=== PATIENT | female | born 1965 | race African-American/Black ===

== ENCOUNTER 2024-06-06 02:22 | Emergency (ER) | payer OTHER ==
[~2024-06-06] VITALS: Ht 165.1 cm; Wt 125.4 kg
[2024-06-06 02:28] VITALS: O2SAT 96
[2024-06-06 03:26] LABS: HEMATOCRIT. 27.3 % (36.0-48.0); HEMOGLOBIN. 9.1 g/dL (12.0-16.0); MEAN CORPUSCULAR HGB CONC 33.5 g/dL (31.0-37.0); MEAN CORPUSCULAR VOLUME 80.5 fL (81.0-99.0); MEAN PLATELET VOLUME 7.8 fl (7.4-10.4); PLATELET 234 x1000/uL (130-400); RED BLOOD CELL COUNT 3.39 mill/uL (4.2-5.4); RED CELL DISTRIBUTION WIDTH 16.2 % (11.6-14.6); WHITE BLOOD COUNT 12.5 x1000/uL (4.5-11.0)
[2024-06-06] MEDS: DEXAMETHASONE 10 MG/ML VIAL IV ONE (03:26)
[2024-06-06] MEDS: LEVETIRACETAM 1000MG PREMIX 100 ML IV ONE (03:26)
[2024-06-06] MEDS: ONDANSETRON HCL 4MG/2ML INJ IV STA (03:26)
[2024-06-06 03:30] LABS: DIFFERENTIAL COMMENT 1
[2024-06-06 03:37] LABS: CHLORIDE 86 mEq/L (98-107); POTASSIUM 4.1 mEq/L (3.5-5.1); SODIUM 125 mEq/L (136-145)
[2024-06-06 03:38] LABS: CALCIUM 9.8 mg/dL (8.7-10.4); CARBON DIOXIDE 25 mEq/L (21-32)
[2024-06-06 03:42] LABS: INR 1.3; PROTHROMBIN TIME 13.9 sec (9.6-11.0)
[2024-06-06 03:43] LABS: CREATININE 1.3 mg/dL (0.6-1.0); GLUCOSE 121 mg/dL (70-105); UREA NITROGEN BLOOD 31 mg/dL (9-23)
[2024-06-06 03:44] LABS: TROPONIN I HIGH SENSITIVITY 19 ng/L (3.0-34)
[2024-06-06 03:45] LABS: AMMONIA 26 uMol/L (<32); CREATINE KINASE 189 IU/L (34-145)
[2024-06-06 03:55] LABS: ETHANOL BLOOD < 10 mg/dL (<10)
[2024-06-06] MEDS: IOHEXOL-350 100 ML BOTTLE ONE (04:01)
[2024-06-06 04:24] LABS: LACTIC ACID 7.6 mmol/L (0.4-2.0)
[2024-06-06 05:52] LABS: TROPONIN I HIGH SENSITIVITY 19 ng/L (3.0-34)
[2024-06-06] MEDS ORDERED: HYDROCODONE/ACETAMINOPHEN 5/325MG TABLET PO PRN (06:15)
[2024-06-06] MEDS ORDERED: NALOXONE HCL 0.4MG/ML VIAL IV PRN (06:15)
[2024-06-06 08:06] VITALS: BP 130/95; PULSE 98; RESP 40; TEMP 37.16964; O2SAT 94
[2024-06-06] MEDS: MORPHINE SULFATE 4 MG/ML INJ (FOR IV/IM USE) IV ONE (08:25)
[2024-06-06 08:39] LABS: PLATELET ESTIMATE NORMAL
== END 2024-06-06 08:15 | disposition short-term general hospital (02) ==
LOC: ER 02:22 → EDBEDREQ 04:51 → EDBEDREQTM 04:51 → ER 08:15 → CANBEDREQ 08:20
DX: R56.9 Unspecified convulsions (principal); C79.31 Secondary malignant neoplasm of brain; F19.90 Other psychoactive substance use, unspecified, uncomplicated
CPT/HCPCS: 36415; 70496; 70498; 71045; 80048; 80320; 82140; 82550; 83605; 84484; 85025; 93005; 96365; 96375; 99291; J1100; J1953; J2270; J2405; Q9967; G0480